=== PATIENT | male | born 1950 | race Caucasian/White ===

== ENCOUNTER → 2016-12-30 | Outpatient (CLI) | payer MEDICARE | LOC: M SMT 08:26 | PROVIDERS: ATTEND Urology | DX: R97.20 Elevated prostate specific antigen [PSA] (principal) ==

== ENCOUNTER → 2020-01-04 | Outpatient (REF) | payer MEDICARE, MEDICAID ==
[2020-01-04 15:27] LABS: BASO # 0.1 10^3/uL (0.0-0.2); BASO % 0.6 % (0.0-1.0); EOS # 0.3 10^3/uL (0.0-0.5); EOS % 2.6 % (0.0-3.0); HEMATOCRIT 51.4 % (42.0-52.0); HEMOGLOBIN 17.5 g/dl (13.5-17.5); LYMPH # 2.3 10^3/uL (1.5-5.0); LYMPH % 20.5 % (24.0-44.0); MEAN CORPUSCULAR HEMOGLOBIN 32.3 pg (27.0-33.0); MONO # 0.9 10^3/uL (0.0-0.8); MONO % 7.7 % (0.0-5.0); NEUTROPHILS # 7.6 10^3/uL (1.5-8.5); NEUTROPHILS % 68.1 % (36.0-66.0); PLATELET COUNT, AUTOMATED 214 10^3/uL (150-450); RED BLOOD COUNT 5.41 10^6/uL (4.30-6.10); WHITE BLOOD COUNT 11.1 10^3/uL (4.0-10.0)
== END ==
LOC: M LAB REF 09:00
PROVIDERS: ATTEND Internal Medicine Pulmonary Disease
DX: J84.114 Acute interstitial pneumonitis (principal)

== ENCOUNTER → 2020-01-10 | Outpatient (CLI) | payer MEDICARE, MEDICAID ==
[2020-01-10 13:06] LABS: HEMOGLOBIN A1c 9.6 %
[2020-01-10 13:41] LABS: ALBUMIN 4.6 GM/DL (3.2-5.2); ALT/SGPT 115 U/L (12-78); BILIRUBIN,TOTAL 2.1 MG/DL (0.2-1.0); BLOOD UREA NITROGEN 18 MG/DL (7-18); CALCIUM LEVEL 9.3 MG/DL (8.8-10.2); CARBON DIOXIDE LEVEL 25 MEQ/L (21-32); CHLORIDE LEVEL 100 MEQ/L (98-107); CHOLESTEROL LEVEL 151 MG/DL (<200); CHOLESTEROL RISK RATIO 4.314 (<5); CREATININE FOR GFR 1.14 MG/DL (0.70-1.30); GLOMERULAR FILTRATION RATE > 60.0 (>49); GLUCOSE, FASTING 441 MG/DL (70-100); HDL CHOLESTEROL 35 MG/DL (>40); LDL CHOLESTEROL 57 MG/DL (<100); NON-HDL-C 116 MG/DL; POTASSIUM SERUM 4.7 MEQ/L (3.5-5.1); SODIUM LEVEL 133 MEQ/L (136-145); THYROID STIMULATING HORMONE 0.574 uIU/ML (0.358-3.740); TOTAL PROTEIN 7.6 GM/DL (6.4-8.2); TRIGLYCERIDES LEVEL 297 MG/DL (<150)
== END ==
LOC: M PLALAB 10:28
PROVIDERS: ATTEND Nurse Practitioner Adult Health
DX: E11.9 Type 2 diabetes mellitus without complications (principal); E78.2 Mixed hyperlipidemia; I10 Essential (primary) hypertension; Z13.29 Encounter for screening for other suspected endocrine disorder
CPT/HCPCS: 36415; 80053; 80061; 83036; 84443; G0463

== ENCOUNTER → 2020-03-19 | Outpatient (REF) | payer MEDICARE, MEDICAID ==
[2020-03-19 19:01] LABS: ALT/SGPT 52 U/L (12-78); BLOOD UREA NITROGEN 11 MG/DL (7-18); CALCIUM LEVEL 9.5 MG/DL (8.8-10.2); CARBON DIOXIDE LEVEL 26 MEQ/L (21-32); CHLORIDE LEVEL 108 MEQ/L (98-107); CREATININE FOR GFR 0.88 MG/DL (0.70-1.30); GLOMERULAR FILTRATION RATE > 60.0 (>49); GLUCOSE, FASTING 104 MG/DL (70-100); POTASSIUM SERUM 4.1 MEQ/L (3.5-5.1); SODIUM LEVEL 139 MEQ/L (136-145)
[2020-03-19 20:46] LABS: MALB URINE SIEMENS 10.9 MG/L; MAU/CREAT RATIO 7.1 MCG/MG (0.0-30.0)
[2020-03-19 22:47] LABS: HEMOGLOBIN A1c 7.3 %
== END ==
LOC: M PLALAB 17:00 → M SFHCPLAZ 17:00
PROVIDERS: ATTEND Nurse Practitioner Adult Health
DX: M1A.9XX0 Chronic gout, unspecified, without tophus (tophi) (principal); E11.9 Type 2 diabetes mellitus without complications
CPT/HCPCS: 80053; 82043; 83036; G0463; G8482

== ENCOUNTER → 2020-07-30 | Outpatient (REF) | payer MEDICARE ==
[2020-07-30 15:08] LABS: ALBUMIN 4.3 GM/DL (3.2-5.2); ALT/SGPT 73 U/L (12-78); BILIRUBIN,TOTAL 1.3 MG/DL (0.2-1.0); BLOOD UREA NITROGEN 14 MG/DL (7-18); CALCIUM LEVEL 9.3 MG/DL (8.8-10.2); CARBON DIOXIDE LEVEL 31 MEQ/L (21-32); CHLORIDE LEVEL 107 MEQ/L (98-107); CHOLESTEROL LEVEL 131 MG/DL (<200); CHOLESTEROL RISK RATIO 3.638 (<5); CREATININE FOR GFR 0.87 MG/DL (0.70-1.30); GLOMERULAR FILTRATION RATE > 60.0 (>49); GLUCOSE, FASTING 98 MG/DL (70-100); HDL CHOLESTEROL 36 MG/DL (>40); LDL CHOLESTEROL 41 MG/DL (<100); NON-HDL-C 95 MG/DL; POTASSIUM SERUM 4.6 MEQ/L (3.5-5.1); SODIUM LEVEL 142 MEQ/L (136-145); TOTAL PROTEIN 7.2 GM/DL (6.4-8.2); TRIGLYCERIDES LEVEL 269 MG/DL (<150); URIC ACID 4.5 MG/DL (3.5-7.2)
[2020-07-30 15:37] LABS: HEMOGLOBIN A1c 6.2 %
[2020-07-30 18:15] LABS: MALB URINE SIEMENS 10.4 MG/L; MAU/CREAT RATIO 7.2 MCG/MG (0.0-30.0)
== END ==
LOC: M SFHCPLAZ 11:02
PROVIDERS: ATTEND Nurse Practitioner Adult Health
DX: E78.2 Mixed hyperlipidemia (principal); E11.9 Type 2 diabetes mellitus without complications; M1A.9XX0 Chronic gout, unspecified, without tophus (tophi)
CPT/HCPCS: 36415; 80053; 80061; 82043; 83036; 84550; G0463

== ENCOUNTER → 2021-01-30 | Outpatient (CLI) | payer MEDICARE ==
[2021-01-30 16:04] LABS: HEMOGLOBIN A1c 6.4 %
[2021-01-30 16:17] LABS: ALBUMIN 3.7 GM/DL (3.2-5.2); ALT/SGPT 105 U/L (12-78); BILIRUBIN,TOTAL 1.5 MG/DL (0.2-1.0); BLOOD UREA NITROGEN 11 MG/DL (7-18); CALCIUM LEVEL 9.3 MG/DL (8.8-10.2); CARBON DIOXIDE LEVEL 31 MEQ/L (21-32); CHLORIDE LEVEL 104 MEQ/L (98-107); CHOLESTEROL LEVEL 133 MG/DL (<200); CREATININE FOR GFR 0.69 MG/DL (0.70-1.30); GLOMERULAR FILTRATION RATE > 60.0 (>49); GLUCOSE, FASTING 94 MG/DL (70-100); HDL CHOLESTEROL 31 MG/DL (>40); LDL CHOLESTEROL 30 MG/DL (<100); NON-HDL-C 102 MG/DL; POTASSIUM SERUM 4.5 MEQ/L (3.5-5.1); SODIUM LEVEL 140 MEQ/L (136-145); TOTAL PROTEIN 6.6 GM/DL (6.4-8.2); TRIGLYCERIDES LEVEL 359 MG/DL (<150)
[2021-01-30 16:25] LABS: MALB URINE SIEMENS 13.8 MG/L; MAU/CREAT RATIO 8.6 MCG/MG (0.0-30.0)
== END ==
LOC: M PLALAB 11:20
PROVIDERS: ATTEND Nurse Practitioner Adult Health
DX: E11.9 Type 2 diabetes mellitus without complications (principal)

== ENCOUNTER → 2021-05-23 | Outpatient (CLI) | payer OTHER | LOC: M PLAIMG 09:42 | PROVIDERS: ATTEND Internal Medicine Pulmonary Disease | DX: J62.0 Pneumoconiosis due to talc dust (principal); R97.20 Elevated prostate specific antigen [PSA] ==

== ENCOUNTER → 2021-07-23 | Outpatient (CLI) | payer MEDICARE ==
[2021-07-23 13:43] LABS: ALT/SGPT 62 U/L (12-78); BILIRUBIN,TOTAL 1.6 MG/DL (0.2-1.0); BLOOD UREA NITROGEN 11 MG/DL (7-18); CALCIUM LEVEL 9.5 MG/DL (8.8-10.2); CARBON DIOXIDE LEVEL 29 MEQ/L (21-32); CHLORIDE LEVEL 108 MEQ/L (98-107); CHOLESTEROL LEVEL 112 MG/DL (<200); CHOLESTEROL RISK RATIO 3.612 (<5); CREATININE FOR GFR 0.87 MG/DL (0.70-1.30); GLOMERULAR FILTRATION RATE > 60.0 (>42); GLUCOSE, FASTING 74 MG/DL (70-100); HDL CHOLESTEROL 31 MG/DL (>40); LDL CHOLESTEROL 20 MG/DL (<100); NON-HDL-C 81 MG/DL; POTASSIUM SERUM 4.2 MEQ/L (3.5-5.1); SODIUM LEVEL 143 MEQ/L (136-145); TOTAL PROTEIN 6.9 GM/DL (6.4-8.2); TRIGLYCERIDES LEVEL 305 MG/DL (<150)
[2021-07-23 13:53] LABS: MALB URINE SIEMENS 31.2 MG/L
[2021-07-23 19:30] LABS: HEMOGLOBIN A1c 6.7 %
== END ==
LOC: M PLALAB 11:03
PROVIDERS: ATTEND Nurse Practitioner Adult Health
DX: E78.2 Mixed hyperlipidemia (principal); E11.9 Type 2 diabetes mellitus without complications

== ENCOUNTER → 2022-03-16 | Outpatient (REF) | payer OTHER, MEDICARE | LOC: M LAB REF 13:12 | PROVIDERS: ATTEND Nurse Practitioner Adult Health | DX: R05.9 Cough, unspecified (principal) ==

== ENCOUNTER → 2022-03-19 | Outpatient (CLI) | payer OTHER | LOC: M PLAIMG 10:50 | PROVIDERS: ATTEND Nurse Practitioner Adult Health | DX: J44.1 Chronic obstructive pulmonary disease with (acute) exacerbation (principal) ==

== ENCOUNTER → 2022-04-01 | Outpatient (CLI) | payer OTHER | LOC: M PLAIMG 11:56 | PROVIDERS: ATTEND Internal Medicine Pulmonary Disease | DX: J84.9 Interstitial pulmonary disease, unspecified (principal) ==

== ENCOUNTER → 2022-04-20 | Outpatient (CLI) | payer OTHER ==
[~2022-04-20] MED LIST: ALBU6.7H6 INH; ALLO300T2 PO; ASPI81TA26 PO; ATEN25TA PO; AZEL1SPR3 INH; B-10TAB2 PO; B-12100010 PO; BACL10TA2 PO; ENAL20TA11 PO; FINA5TAB2 PO; FLUTISP INH; GABA-283 PO; JANU100T PO; METF-838 PO; PRED10TA2 PO; ROPI0.5T3 PO; SIMV20TA22 PO; VITMTA PO
== END ==
LOC: M PLAIMG 08:40
PROVIDERS: ATTEND Internal Medicine Pulmonary Disease
DX: R91.8 Other nonspecific abnormal finding of lung field (principal)

== ENCOUNTER 2022-04-21 13:06 | Inpatient (IN) | payer OTHER ==
[~2022-04-21] VITALS: Ht 180.3 cm; Wt 91.2 kg
[2022-04-21] MEDS ORDERED: ISOVUE-370 76% 100ML VIAL As Ordered ONE (13:53)
[2022-04-21 13:55] LABS: BASO % 0.1 % (0.0-1.0); EOS % 0.2 % (0.0-3.0); HEMATOCRIT 53.3 % (42.0-52.0); HEMOGLOBIN 16.9 g/dl (13.5-17.5); LYMPH # 1.4 10^3/uL (1.5-5.0); LYMPH % 8.5 % (24.0-44.0); MEAN CORPUSCULAR HEMOGLOBIN 30.9 pg (27.0-33.0); MEAN CORPUSCULAR HGB CONC 31.7 g/dl (32.0-36.5); MEAN CORPUSCULAR VOLUME 97.4 fl (80.0-96.0); MONO % 6.3 % (2.0-8.0); NEUTROPHILS # 13.5 10^3/uL (1.5-8.5); NEUTROPHILS % 84.3 % (36.0-66.0); PLATELET COUNT, AUTOMATED 274 10^3/uL (150-450); RED BLOOD COUNT 5.47 10^6/uL (4.30-6.10)
[2022-04-21] MEDS ORDERED: PRED10TA2 PO (14:15)
[2022-04-21] MEDS ORDERED: ALLO300T2 PO (14:15)
[2022-04-21] MEDS ORDERED: ROPI0.5T3 PO (14:15)
[2022-04-21] MEDS ORDERED: FINA5TAB2 PO (14:15)
[2022-04-21] MEDS ORDERED: AZEL1SPR3 INH (14:15)
[2022-04-21] MEDS ORDERED: BACL10TA2 PO ×2 (14:15→20:51)
[2022-04-21] MEDS ORDERED: ATEN25TA PO (14:15)
[2022-04-21] MEDS ORDERED: FLUTISP INH (14:15)
[2022-04-21] MEDS ORDERED: SIMV20TA22 PO (14:15)
[2022-04-21] MEDS ORDERED: GABA-283 PO (14:15)
[2022-04-21] MEDS ORDERED: METF-838 PO (14:15)
[2022-04-21] MEDS ORDERED: JANU100T PO (14:15)
[2022-04-21] MEDS ORDERED: ENAL20TA11 PO (14:15)
[2022-04-21 14:38] LABS: BILIRUBIN,DIRECT 0.7 MG/DL (<0.4)
[2022-04-21 14:39] LABS: ALBUMIN 3.6 G/DL (3.2-5.2); BILIRUBIN,TOTAL 1.9 MG/DL (0.3-1.2); TOTAL PROTEIN 6.3 G/DL (5.7-8.2)
[2022-04-21 14:41] LABS: THYROID STIMULATING HORMONE 1.038 uIU/ML (0.55-4.78); THYROXINE (T4) 5.2 UG/DL (4.5-10.9)
[2022-04-21] MEDS ORDERED: LevoFLOXacin IV 750 MG in IV 1 EA IV ONE (15:20)
[2022-04-21] MEDS ORDERED: VANCOMYCIN HCL 1,000 MG, VIAL MATE ADAPTER 1 EACH in NS 250 ML IV SCH (15:50)
[2022-04-21] MEDS: LEVALBUTEROL 1.25MG 0.5ML CONCENTRATE NEB INH SCH ×2 (16:00→23:02)
[2022-04-21] MEDS: IPRATROPIUM 0.02% SOLN 0.5MG 2.5ML NEB INH SCH ×2 (16:00→23:01)
[2022-04-21] MEDS: methylPREDNISolone 125MG 2ML VIAL IV SCH (16:16)
[2022-04-21 16:23] LABS: CK-MB VALUE MASS 2.9 NG/ML (<3.6)
[2022-04-21 16:24] LABS: MB/CK RELATIVE INDEX 6.74 (< OR =4)
[2022-04-21 17:29] LABS: CK-MB VALUE MASS 2.4 NG/ML (<3.6); MB/CK RELATIVE INDEX 6.48 (< OR =4)
[2022-04-21] MEDS: PIPERACILLIN/TAZOBACTAM SOD 4.5 GM in D5W MINI-BAG PLUS 50 ML IV SCH (17:45)
[2022-04-21] MEDS ORDERED: VANCOMYCIN HCL 1,000 MG, VIAL MATE ADAPTER 1 EACH in NS 250 ML IV ONE ×2 (20:00→21:00)
[2022-04-21] MEDS ORDERED: DEXTROSE 50% 50 ML SYRINGE IV PRN (20:40)
[2022-04-21] MEDS ORDERED: GLUCOSE 4GM CHEW TABLET PO PRN (20:40)
[2022-04-21] MEDS ORDERED: GLUCAGON INJ 1MG VIAL SC PRN (20:40)
[2022-04-21] MEDS ORDERED: VITMTA PO (20:51)
[2022-04-21] MEDS ORDERED: ALBU6.7H6 INH (20:51)
[2022-04-21] MEDS ORDERED: ASPI81TA26 PO (20:51)
[2022-04-21] MEDS ORDERED: B-10TAB2 PO (20:51)
[2022-04-21] MEDS ORDERED: B-12100010 PO (20:51)
[2022-04-21] MEDS ORDERED: HOME MED LIST COMPLETE! XX SCH (20:55)
[2022-04-21 21:52] LABS: ABG BASE EXCESS 0.4 (-2.0-2.0); ABG HCO3 28.2 MEQ/L (22.0-26.0); ABG O2 SATURATION 93.1 % (95.0-99.0); ABG PARTIAL PRESSURE CO2 56.8 mmHg (35.0-45.0); ABG PARTIAL PRESSURE O2 69.7 mmHg (75.0-100.0); ABG STANDARD HCO3 24.7 MEQ/L (22.0-26.0); ABG TOTAL CO2 29.9 MEQ/L (23.0-31.0); ABG pH (ARTERIAL) 7.313 UNITS (7.350-7.450)
[2022-04-21 22:19] LABS: BLOOD UREA NITROGEN 32 MG/DL (9-23); CALCIUM LEVEL 9.3 MG/DL (8.3-10.6); CARBON DIOXIDE LEVEL 28 MMOL/L (20-31); CHLORIDE LEVEL 94 MMOL/L (98-107); CREATININE FOR GFR 1.02 MG/DL (0.70-1.30); GLOMERULAR FILTRATION RATE > 60.0 (>42); GLUCOSE, FASTING 90 MG/DL (74-106); POTASSIUM SERUM 5.4 MMOL/L (3.5-5.1); SODIUM LEVEL 132 MMOL/L (136-145)
[2022-04-22] MEDS ORDERED: ALBUTEROL SULFATE 2.5 MG/0.5 ML INH NEB SOLN NEB PRN (03:10)
[2022-04-22] MEDS ORDERED: ALBUTEROL 90 MCG/ACT 8GM HFA INHALER INH PRN (03:25)
[2022-04-22 04:02] LABS: BLOOD UREA NITROGEN 19 MG/DL (9-23); CALCIUM LEVEL 8.4 MG/DL (8.3-10.6); CARBON DIOXIDE LEVEL 27 MMOL/L (20-31); CHLORIDE LEVEL 97 MMOL/L (98-107); CREATININE FOR GFR 0.87 MG/DL (0.70-1.30); GLOMERULAR FILTRATION RATE > 60.0 (>42); GLUCOSE, FASTING 114 MG/DL (74-106); POTASSIUM SERUM 5.6 MMOL/L (3.5-5.1); SODIUM LEVEL 131 MMOL/L (136-145)
[2022-04-22 05:58] LABS: ABG BASE EXCESS -0.7 (-2.0-2.0); ABG HCO3 27.3 MEQ/L (22.0-26.0); ABG O2 SATURATION 93.4 % (95.0-99.0); ABG PARTIAL PRESSURE CO2 58.1 mmHg (35.0-45.0); ABG PARTIAL PRESSURE O2 72.6 mmHg (75.0-100.0); ABG STANDARD HCO3 23.8 MEQ/L (22.0-26.0); ABG TOTAL CO2 29.1 MEQ/L (23.0-31.0)
[2022-04-22] MEDS: INSULIN LISPRO (NovoLOG) PER UNIT SC SCH ×5 (06:00→20:09)
[2022-04-22] MEDS: HEPARIN SOD (PORCINE) 5000UNITS/ML 1ML VIAL/SYRINGE SC SCH ×3 (06:24→21:54)
[2022-04-22] MEDS: PIPERACILLIN/TAZOBACTAM SOD 4.5 GM in D5W MINI-BAG PLUS 50 ML IV SCH ×6 (06:25→23:54)
[2022-04-22 07:34] LABS: APPEARANCE, URINE MANUAL CLEAR (CLEAR); COLOR, URINE MANUAL YELLOW (YELLOW); SPECIFIC GRAVITY,URINE MANUAL 1.025 (1.002-1.035)
[2022-04-22 07:35] LABS: BILIRUBIN, URINE MANUAL NEGATIVE (NEGATIVE); BLOOD URINE MANUAL NEGATIVE (NEGATIVE); GLUCOSE, URINE (UA) MANUAL NEGATIVE (NEGATIVE); KETONE, URINE MANUAL 1+ mg/dL (NEGATIVE); LEUKOCYTE ESTERASE, URINE MAN NEGATIVE (NEGATIVE); NITRITE, URINE MANUAL NEGATIVE (NEGATIVE); PROTEIN, URINE MANUAL NEGATIVE (NEGATIVE); UROBILINOGEN, URINE MANUAL NORMAL (NORMAL)
[2022-04-22] MEDS ORDERED: IPRATROPIUM 0.5MG/ALBUTEROL 2.5MG INH SOL UD 3ML (DUONEB) NEB SCH (08:00)
[2022-04-22] MEDS ORDERED: FUROSEMIDE 20MG/2ML VIAL (J1940) IV ONE ×2 (08:10→14:00)
[2022-04-22] MEDS: CYANOCOBALAMIN 500 MCG TAB PO SCH (08:43)
[2022-04-22] MEDS: FINASTERIDE 5MG TAB PO SCH (08:43)
[2022-04-22] MEDS: methylPREDNISolone 125MG 2ML VIAL IV SCH ×3 (08:43→17:12)
[2022-04-22] MEDS: BACLOFEN 10 MG TAB PO SCH ×2 (08:44→20:03)
[2022-04-22] MEDS: MULTIVITAMINS/MINERALS THERAP 1 TAB PO SCH (08:44)
[2022-04-22] MEDS: atenoloL 25 MG TAB PO SCH (08:44)
[2022-04-22] MEDS ORDERED: methylPREDNISolone 40MG 1ML VIAL IV SCH (09:00)
[2022-04-22] MEDS: IPRATROPIUM 0.02% SOLN 0.5MG 2.5ML NEB INH SCH ×2 (09:01→16:39)
[2022-04-22] MEDS: LEVALBUTEROL 1.25MG 0.5ML CONCENTRATE NEB INH SCH ×2 (09:01→16:39)
[2022-04-22 09:29] LABS: HEMATOCRIT 52.4 % (42.0-52.0); HEMOGLOBIN 16.7 g/dl (13.5-17.5); MEAN CORPUSCULAR HEMOGLOBIN 31.3 pg (27.0-33.0); MEAN CORPUSCULAR HGB CONC 31.9 g/dl (32.0-36.5); MEAN CORPUSCULAR VOLUME 98.1 fl (80.0-96.0); PLATELET COUNT, AUTOMATED 194 10^3/uL (150-450); RED BLOOD COUNT 5.34 10^6/uL (4.30-6.10); WHITE BLOOD COUNT 10.2 10^3/uL (4.0-10.0)
[2022-04-22] MEDS ORDERED: DEXTROSE 50% 50 ML SYRINGE IV STA (11:06)
[2022-04-22] MEDS ORDERED: HumuLIN R (REGULAR) INSULIN (NovoLIN R) **100U/ML** PER UNIT IV STA (11:06)
[2022-04-22] MEDS ORDERED: ALBUTEROL SULFATE 2.5 MG/0.5 ML INH NEB SOLN NEB ONE (11:45)
[2022-04-22 12:25] LABS: BLOOD UREA NITROGEN 27 MG/DL (9-23); CALCIUM LEVEL 8.6 MG/DL (8.3-10.6); CARBON DIOXIDE LEVEL 27 MMOL/L (20-31); CHLORIDE LEVEL 96 MMOL/L (98-107); CREATININE FOR GFR 0.92 MG/DL (0.70-1.30); GLOMERULAR FILTRATION RATE > 60.0 (>42); GLUCOSE, FASTING 124 MG/DL (74-106); SODIUM LEVEL 133 MMOL/L (136-145)
[2022-04-22] MEDS: PANTOPRAZOLE 40MG TAB (PROTONIX) PO SCH (12:50)
[2022-04-22 13:08] LABS: ABG BASE EXCESS 0.1 (-2.0-2.0); ABG HCO3 26.5 MEQ/L (22.0-26.0); ABG O2 SATURATION 94.8 % (95.0-99.0); ABG PARTIAL PRESSURE CO2 49.3 mmHg (35.0-45.0); ABG PARTIAL PRESSURE O2 71.7 mmHg (75.0-100.0); ABG STANDARD HCO3 24.5 MEQ/L (22.0-26.0); ABG TOTAL CO2 28.1 MEQ/L (23.0-31.0); ABG pH (ARTERIAL) 7.349 UNITS (7.350-7.450)
[2022-04-22 13:51] LABS: POTASSIUM SERUM 5.7 MMOL/L (3.5-5.1)
[2022-04-22] MEDS ORDERED: CALCIUM GLUCONATE 1,000 MG in D5W MINI-BAG PLUS 100 ML IV ONE (14:00)
[2022-04-22 16:28] VITALS: BP 117/68
[2022-04-22] MEDS: AZITHROMYCIN 250MG TABLET PO SCH (17:12)
[2022-04-22 19:27] LABS: BLOOD UREA NITROGEN 26 MG/DL (9-23); CALCIUM LEVEL 9.2 MG/DL (8.3-10.6); CARBON DIOXIDE LEVEL 32 MMOL/L (20-31); CHLORIDE LEVEL 92 MMOL/L (98-107); CREATININE FOR GFR 1.05 MG/DL (0.70-1.30); GLOMERULAR FILTRATION RATE > 60.0 (>42); GLUCOSE, FASTING 133 MG/DL (74-106); POTASSIUM SERUM 5.3 MMOL/L (3.5-5.1); SODIUM LEVEL 134 MMOL/L (136-145)
[2022-04-22] MEDS: allopurinoL 300 MG TAB PO SCH (20:03)
[2022-04-22] MEDS: rOPINIRole 0.25 MG TAB(REQUIP) PO SCH (20:04)
[2022-04-22] MEDS: GABAPENTIN 400MG CAP PO SCH (20:04)
[2022-04-22 20:10] VITALS: BP 119/63
[2022-04-22 21:55] VITALS: BP 91/57
[2022-04-23] VITALS (21 sets, daily range): BP systolic 95–134; BP diastolic 59–75
[2022-04-23] MEDS: LEVALBUTEROL 1.25MG 0.5ML CONCENTRATE NEB INH SCH ×4 (00:34→23:16)
[2022-04-23] MEDS: IPRATROPIUM 0.02% SOLN 0.5MG 2.5ML NEB INH SCH ×4 (00:34→23:16)
[2022-04-23 00:59] LABS: BLOOD UREA NITROGEN 15 MG/DL (9-23); CALCIUM LEVEL 8.6 MG/DL (8.3-10.6); CARBON DIOXIDE LEVEL 31 MMOL/L (20-31); CHLORIDE LEVEL 95 MMOL/L (98-107); CREATININE FOR GFR 1.07 MG/DL (0.70-1.30); GLOMERULAR FILTRATION RATE > 60.0 (>42); GLUCOSE, FASTING 150 MG/DL (74-106); POTASSIUM SERUM 5.5 MMOL/L (3.5-5.1); SODIUM LEVEL 132 MMOL/L (136-145)
[2022-04-23] MEDS ORDERED: CALCIUM GLUCONATE 1,000 MG in D5W MINI-BAG PLUS 100 ML IV ONE (01:55)
[2022-04-23 04:35] LABS: HEMATOCRIT 46.5 % (42.0-52.0); HEMOGLOBIN 14.8 g/dl (13.5-17.5); MEAN CORPUSCULAR HEMOGLOBIN 30.8 pg (27.0-33.0); MEAN CORPUSCULAR HGB CONC 31.8 g/dl (32.0-36.5); MEAN CORPUSCULAR VOLUME 96.9 fl (80.0-96.0); PLATELET COUNT, AUTOMATED 154 10^3/uL (150-450); WHITE BLOOD COUNT 11.2 10^3/uL (4.0-10.0)
[2022-04-23 05:33] LABS: BLOOD UREA NITROGEN 27 MG/DL (9-23); CALCIUM LEVEL 8.7 MG/DL (8.3-10.6); CARBON DIOXIDE LEVEL 33 MMOL/L (20-31); CHLORIDE LEVEL 95 MMOL/L (98-107); CREATININE FOR GFR 1.05 MG/DL (0.70-1.30); GLOMERULAR FILTRATION RATE > 60.0 (>42); GLUCOSE, FASTING 166 MG/DL (74-106); POTASSIUM SERUM 5.5 MMOL/L (3.5-5.1); SODIUM LEVEL 132 MMOL/L (136-145)
[2022-04-23] MEDS: PIPERACILLIN/TAZOBACTAM SOD 4.5 GM in D5W MINI-BAG PLUS 50 ML IV SCH ×4 (05:35→23:57)
[2022-04-23] MEDS: HEPARIN SOD (PORCINE) 5000UNITS/ML 1ML VIAL/SYRINGE SC SCH (05:40)
[2022-04-23 06:08] LABS: ABG BASE EXCESS 5.2 (-2.0-2.0); ABG HCO3 32.7 MEQ/L (22.0-26.0); ABG O2 SATURATION 98.7 % (95.0-99.0); ABG PARTIAL PRESSURE CO2 58.8 mmHg (35.0-45.0); ABG PARTIAL PRESSURE O2 127.5 mmHg (75.0-100.0); ABG STANDARD HCO3 29.2 MEQ/L (22.0-26.0); ABG TOTAL CO2 34.5 MEQ/L (23.0-31.0); ABG pH (ARTERIAL) 7.363 UNITS (7.350-7.450)
[2022-04-23] MEDS ORDERED: SOD POLYSTYRENE SULFONATE SUSP 15GM 60ML UD PO ONE (07:00)
[2022-04-23] MEDS: INSULIN LISPRO (NovoLOG) PER UNIT SC SCH ×4 (07:30→20:31)
[2022-04-23] MEDS: atenoloL 25 MG TAB PO SCH (08:05)
[2022-04-23] MEDS: PANTOPRAZOLE 40MG TAB (PROTONIX) PO SCH (08:40)
[2022-04-23] MEDS: methylPREDNISolone 125MG 2ML VIAL IV SCH ×3 (08:40→17:00)
[2022-04-23] MEDS: AZITHROMYCIN 250MG TABLET PO SCH (08:40)
[2022-04-23] MEDS ORDERED: LIDOCAINE 1% MDV 20ML VIAL As Ordered ONE (14:52)
[2022-04-23] MEDS ORDERED: LIDOCAINE 4% TOPICAL SOLN 50 ML BTL As Ordered ONE (14:53)
[2022-04-23] MEDS ORDERED: THROMBIN 20,000 UNITS KIT As Ordered ONE (14:53)
[2022-04-23] MEDS ORDERED: EPINEPHrine 1MG/ML INJ 30ML MD-VIAL As Ordered ONE (14:53)
[2022-04-23] MEDS ORDERED: CETACAINE SPRAY 5GM As Ordered ONE (14:55)
[2022-04-23] MEDS ORDERED: propofoL 200 MG/20 ML VIAL As Ordered ONE (14:56)
[2022-04-23] MEDS ORDERED: ROCURONIUM BROMIDE 50 MG/5 ML VIAL As Ordered ONE (14:58)
[2022-04-23] MEDS ORDERED: ONDANSETRON 4MG 2ML VIAL As Ordered ONE (14:58)
[2022-04-23] MEDS ORDERED: fentaNYL 100 MCG/2 ML INJECTION As Ordered ONE (14:58)
[2022-04-23] MEDS ORDERED: EPINEPHrine 1MG/10ML SYRINGE 1.5IN As Ordered ONE (15:41)
[2022-04-23] MEDS ORDERED: SUGAMMADEX SODIUM 500 MG/5 ML VIAL (BRIDION) As Ordered ONE (15:45)
[2022-04-23] MEDS: MULTIVITAMINS/MINERALS THERAP 1 TAB PO SCH (17:00)
[2022-04-23] MEDS: BACLOFEN 10 MG TAB PO SCH ×2 (17:00→20:05)
[2022-04-23] MEDS: CYANOCOBALAMIN 500 MCG TAB PO SCH (17:00)
[2022-04-23] MEDS: FINASTERIDE 5MG TAB PO SCH (17:00)
[2022-04-23 18:07] LABS: MYCOPLASMA PNEUMONIAE IgG <100 U/mL (0-99); MYCOPLASMA PNEUMONIAE IgM <770 U/mL (0-769)
[2022-04-23] MEDS: allopurinoL 300 MG TAB PO SCH (20:05)
[2022-04-23] MEDS: GABAPENTIN 400MG CAP PO SCH (20:05)
[2022-04-23] MEDS: rOPINIRole 0.25 MG TAB(REQUIP) PO SCH (20:05)
[2022-04-24] VITALS (8 sets, daily range): BP systolic 97–133; BP diastolic 50–74
[2022-04-24] MEDS: methylPREDNISolone 125MG 2ML VIAL IV SCH ×2 (00:01→08:12)
[2022-04-24 04:43] LABS: HEMATOCRIT 47.2 % (42.0-52.0); HEMOGLOBIN 14.6 g/dl (13.5-17.5); MEAN CORPUSCULAR HEMOGLOBIN 30.9 pg (27.0-33.0); MEAN CORPUSCULAR HGB CONC 30.9 g/dl (32.0-36.5); MEAN CORPUSCULAR VOLUME 99.8 fl (80.0-96.0); PLATELET COUNT, AUTOMATED 150 10^3/uL (150-450); RED BLOOD COUNT 4.73 10^6/uL (4.30-6.10); WHITE BLOOD COUNT 9.6 10^3/uL (4.0-10.0)
[2022-04-24] MEDS: PIPERACILLIN/TAZOBACTAM SOD 4.5 GM in D5W MINI-BAG PLUS 50 ML IV SCH ×2 (05:09→11:40)
[2022-04-24 05:14] LABS: BLOOD UREA NITROGEN 28 MG/DL (9-23); CALCIUM LEVEL 8.6 MG/DL (8.3-10.6); CARBON DIOXIDE LEVEL 33 MMOL/L (20-31); CHLORIDE LEVEL 94 MMOL/L (98-107); GLOMERULAR FILTRATION RATE > 60.0 (>42); GLUCOSE, FASTING 170 MG/DL (74-106); POTASSIUM SERUM 5.2 MMOL/L (3.5-5.1); SODIUM LEVEL 136 MMOL/L (136-145)
[2022-04-24] MEDS: HEPARIN SOD (PORCINE) 5000UNITS/ML 1ML VIAL/SYRINGE SC SCH ×3 (06:05→20:54)
[2022-04-24] MEDS: LEVALBUTEROL 1.25MG 0.5ML CONCENTRATE NEB INH SCH ×3 (07:21→23:14)
[2022-04-24] MEDS: IPRATROPIUM 0.02% SOLN 0.5MG 2.5ML NEB INH SCH ×3 (07:21→23:14)
[2022-04-24] MEDS: INSULIN LISPRO (NovoLOG) PER UNIT SC SCH ×4 (07:33→20:47)
[2022-04-24] MEDS: CYANOCOBALAMIN 500 MCG TAB PO SCH (08:12)
[2022-04-24] MEDS: BACLOFEN 10 MG TAB PO SCH ×2 (08:12→20:54)
[2022-04-24] MEDS: AZITHROMYCIN 250MG TABLET PO SCH (08:12)
[2022-04-24] MEDS: FINASTERIDE 5MG TAB PO SCH (08:12)
[2022-04-24] MEDS: PANTOPRAZOLE 40MG TAB (PROTONIX) PO SCH (08:12)
[2022-04-24] MEDS: atenoloL 25 MG TAB PO SCH (08:13)
[2022-04-24] MEDS: MULTIVITAMINS/MINERALS THERAP 1 TAB PO SCH (08:13)
[2022-04-24] MEDS ORDERED: methylPREDNISolone 40MG 1ML VIAL IV SCH (11:35)
[2022-04-24] MEDS: predniSONE 20 MG TAB PO SCH (12:42)
[2022-04-24] MEDS: FUROSEMIDE 20 MG TAB PO SCH (14:19)
[2022-04-24 15:32] LABS: BLOOD UREA NITROGEN 17 MG/DL (9-23); CALCIUM LEVEL 8.6 MG/DL (8.3-10.6); CARBON DIOXIDE LEVEL 36 MMOL/L (20-31); CHLORIDE LEVEL 92 MMOL/L (98-107); CREATININE FOR GFR 1.14 MG/DL (0.70-1.30); GLOMERULAR FILTRATION RATE > 60.0 (>42); GLUCOSE, FASTING 134 MG/DL (74-106); SODIUM LEVEL 134 MMOL/L (136-145)
[2022-04-24 18:07] LABS: HISTOPLASMA GAL'MANNAN AG UR <0.5 (<0.5 ng/mL); LEGIONELLA ANTIGEN URINE Negative (Negative)
[2022-04-24] MEDS: GABAPENTIN 400MG CAP PO SCH (20:53)
[2022-04-24] MEDS: rOPINIRole 0.25 MG TAB(REQUIP) PO SCH (20:54)
[2022-04-24] MEDS: AUGMENTIN 875 MG TAB PO SCH (20:54)
[2022-04-24] MEDS: allopurinoL 300 MG TAB PO SCH (20:54)
[2022-04-25] MEDS: HEPARIN SOD (PORCINE) 5000UNITS/ML 1ML VIAL/SYRINGE SC SCH ×3 (05:26→20:24)
[2022-04-25 05:27] VITALS: BP 114/67
[2022-04-25 06:44] LABS: HEMOGLOBIN 14.6 g/dl (13.5-17.5); LYMPH # 0.7 10^3/uL (1.5-5.0); LYMPH % 6.7 % (24.0-44.0); MEAN CORPUSCULAR HEMOGLOBIN 30.7 pg (27.0-33.0); MEAN CORPUSCULAR HGB CONC 31.1 g/dl (32.0-36.5); MEAN CORPUSCULAR VOLUME 98.9 fl (80.0-96.0); MONO # 0.9 10^3/uL (0.0-0.8); NEUTROPHILS % 84.7 % (36.0-66.0); PLATELET COUNT, AUTOMATED 132 10^3/uL (150-450); RED BLOOD COUNT 4.75 10^6/uL (4.30-6.10); WHITE BLOOD COUNT 10.6 10^3/uL (4.0-10.0)
[2022-04-25 07:13] LABS: MAGNESIUM LEVEL 2.3 MG/DL (1.8-2.4)
[2022-04-25] MEDS: LEVALBUTEROL 1.25MG 0.5ML CONCENTRATE NEB INH SCH ×3 (07:29→23:15)
[2022-04-25] MEDS: IPRATROPIUM 0.02% SOLN 0.5MG 2.5ML NEB INH SCH ×3 (07:29→23:15)
[2022-04-25] MEDS: INSULIN LISPRO (NovoLOG) PER UNIT SC SCH ×4 (07:30→20:08)
[2022-04-25 07:32] LABS: ALBUMIN 3.6 G/DL (3.2-5.2); ALKALINE PHOSPHATASE 39 U/L (46-116); ALT/SGPT 56 U/L (7.0-40); AST/SGOT 47 U/L (<34); BLOOD UREA NITROGEN 26 MG/DL (9-23); CALCIUM LEVEL 8.8 MG/DL (8.3-10.6); CARBON DIOXIDE LEVEL 36 MMOL/L (20-31); CHLORIDE LEVEL 93 MMOL/L (98-107); CREATININE FOR GFR 0.95 MG/DL (0.70-1.30); GLOMERULAR FILTRATION RATE > 60.0 (>42); GLUCOSE, FASTING 84 MG/DL (74-106); POTASSIUM SERUM 4.7 MMOL/L (3.5-5.1); SODIUM LEVEL 138 MMOL/L (136-145); TOTAL PROTEIN 5.7 G/DL (5.7-8.2)
[2022-04-25] MEDS: PANTOPRAZOLE 40MG TAB (PROTONIX) PO SCH (08:26)
[2022-04-25] MEDS: FUROSEMIDE 20 MG TAB PO SCH (08:26)
[2022-04-25] MEDS: predniSONE 20 MG TAB PO SCH (08:26)
[2022-04-25] MEDS: FINASTERIDE 5MG TAB PO SCH (08:26)
[2022-04-25] MEDS: CYANOCOBALAMIN 500 MCG TAB PO SCH (08:26)
[2022-04-25] MEDS: BACLOFEN 10 MG TAB PO SCH ×2 (08:27→20:24)
[2022-04-25] MEDS: AUGMENTIN 875 MG TAB PO SCH ×2 (08:27→20:24)
[2022-04-25] MEDS: MULTIVITAMINS/MINERALS THERAP 1 TAB PO SCH (08:27)
[2022-04-25] MEDS ORDERED: FUROSEMIDE 20MG/2ML VIAL (J1940) IV ONE (10:00)
[2022-04-25 12:46] VITALS: O2SAT 94
[2022-04-25 12:47] VITALS: O2SAT 90
[2022-04-25 12:49] VITALS: O2SAT 86
[2022-04-25] MEDS ORDERED: PANT40TA29 PO (13:26)
[2022-04-25] MEDS ORDERED: PRED10TA2 PO (13:26)
[2022-04-25] MEDS ORDERED: AMOX875T2 PO (13:26)
[2022-04-25] MEDS ORDERED: FURO20TA2 PO (13:26)
[2022-04-25 16:00] VITALS: BP 118/75
[2022-04-25 20:00] VITALS: BP 130/79
[2022-04-25] MEDS: rOPINIRole 0.25 MG TAB(REQUIP) PO SCH (20:24)
[2022-04-25] MEDS: GABAPENTIN 400MG CAP PO SCH (20:24)
[2022-04-25] MEDS: allopurinoL 300 MG TAB PO SCH (20:24)
[2022-04-26] MEDS: HEPARIN SOD (PORCINE) 5000UNITS/ML 1ML VIAL/SYRINGE SC SCH ×3 (05:17→20:11)
[2022-04-26 06:00] VITALS: BP 114/72
[2022-04-26 06:26] LABS: EOS # 0.1 10^3/uL (0.0-0.5); EOS % 0.7 % (0.0-3.0); HEMATOCRIT 47.5 % (42.0-52.0); HEMOGLOBIN 14.9 g/dl (13.5-17.5); LYMPH % 12.2 % (24.0-44.0); MEAN CORPUSCULAR HGB CONC 31.4 g/dl (32.0-36.5); MEAN CORPUSCULAR VOLUME 98.8 fl (80.0-96.0); MONO # 0.6 10^3/uL (0.0-0.8); MONO % 7.5 % (2.0-8.0); NEUTROPHILS # 6.8 10^3/uL (1.5-8.5); NEUTROPHILS % 79.2 % (36.0-66.0); PLATELET COUNT, AUTOMATED 101 10^3/uL (150-450); RED BLOOD COUNT 4.81 10^6/uL (4.30-6.10); WHITE BLOOD COUNT 8.5 10^3/uL (4.0-10.0)
[2022-04-26 06:48] LABS: ALBUMIN 3.2 G/DL (3.2-5.2); ALKALINE PHOSPHATASE 42 U/L (46-116); ALT/SGPT 79 U/L (7.0-40); AST/SGOT 65 U/L (<34); BILIRUBIN,TOTAL 2.3 MG/DL (0.3-1.2); BLOOD UREA NITROGEN 17 MG/DL (9-23); CALCIUM LEVEL 8.4 MG/DL (8.3-10.6); CARBON DIOXIDE LEVEL 40 MMOL/L (20-31); CHLORIDE LEVEL 93 MMOL/L (98-107); CREATININE FOR GFR 0.79 MG/DL (0.70-1.30); GLOMERULAR FILTRATION RATE > 60.0 (>42); GLUCOSE, FASTING 88 MG/DL (74-106); POTASSIUM SERUM 3.8 MMOL/L (3.5-5.1); SODIUM LEVEL 138 MMOL/L (136-145); TOTAL PROTEIN 5.4 G/DL (5.7-8.2)
[2022-04-26] MEDS: INSULIN LISPRO (NovoLOG) PER UNIT SC SCH ×4 (07:30→20:11)
[2022-04-26] MEDS: IPRATROPIUM 0.02% SOLN 0.5MG 2.5ML NEB INH SCH ×2 (07:53→15:18)
[2022-04-26] MEDS: LEVALBUTEROL 1.25MG 0.5ML CONCENTRATE NEB INH SCH ×2 (07:54→15:18)
[2022-04-26] MEDS: predniSONE 20 MG TAB PO SCH (09:38)
[2022-04-26] MEDS: BACLOFEN 10 MG TAB PO SCH ×2 (09:38→20:10)
[2022-04-26] MEDS: PANTOPRAZOLE 40MG TAB (PROTONIX) PO SCH (09:38)
[2022-04-26] MEDS: AUGMENTIN 875 MG TAB PO SCH ×2 (09:38→20:10)
[2022-04-26] MEDS: FINASTERIDE 5MG TAB PO SCH (09:38)
[2022-04-26] MEDS: MULTIVITAMINS/MINERALS THERAP 1 TAB PO SCH (09:38)
[2022-04-26] MEDS: FUROSEMIDE 20 MG TAB PO SCH (09:38)
[2022-04-26] MEDS: CYANOCOBALAMIN 500 MCG TAB PO SCH (09:38)
[2022-04-26 15:00] VITALS: BP 127/78
[2022-04-26] MEDS: GABAPENTIN 400MG CAP PO SCH (20:10)
[2022-04-26] MEDS: rOPINIRole 0.25 MG TAB(REQUIP) PO SCH (20:10)
[2022-04-26] MEDS: allopurinoL 300 MG TAB PO SCH (20:10)
[2022-04-26 20:40] VITALS: BP 135/76
[2022-04-27] MEDS: LEVALBUTEROL 1.25MG 0.5ML CONCENTRATE NEB INH SCH ×4 (00:29→23:26)
[2022-04-27] MEDS: IPRATROPIUM 0.02% SOLN 0.5MG 2.5ML NEB INH SCH ×4 (00:29→23:26)
[2022-04-27] MEDS: HEPARIN SOD (PORCINE) 5000UNITS/ML 1ML VIAL/SYRINGE SC SCH ×3 (05:38→21:15)
[2022-04-27 05:52] VITALS: BP 127/71
[2022-04-27 06:04] LABS: BASO % 0.1 % (0.0-1.0); EOS # 0.1 10^3/uL (0.0-0.5); EOS % 1.2 % (0.0-3.0); HEMATOCRIT 47.7 % (42.0-52.0); HEMOGLOBIN 14.8 g/dl (13.5-17.5); LYMPH # 0.9 10^3/uL (1.5-5.0); LYMPH % 10.4 % (24.0-44.0); MEAN CORPUSCULAR VOLUME 99.8 fl (80.0-96.0); MONO # 0.6 10^3/uL (0.0-0.8); MONO % 7.3 % (2.0-8.0); NEUTROPHILS # 6.9 10^3/uL (1.5-8.5); NEUTROPHILS % 80.4 % (36.0-66.0); RED BLOOD COUNT 4.78 10^6/uL (4.30-6.10); WHITE BLOOD COUNT 8.6 10^3/uL (4.0-10.0)
[2022-04-27 06:25] LABS: MAGNESIUM LEVEL 1.9 MG/DL (1.8-2.4)
[2022-04-27 06:28] LABS: PLATELET COUNT, AUTOMATED 99 10^3/uL (150-450)
[2022-04-27 06:39] LABS: ALKALINE PHOSPHATASE 45 U/L (46-116); ALT/SGPT 85 U/L (7.0-40); AST/SGOT 55 U/L (<34); BILIRUBIN,TOTAL 2.4 MG/DL (0.3-1.2); BLOOD UREA NITROGEN 13 MG/DL (9-23); CALCIUM LEVEL 8.5 MG/DL (8.3-10.6); CARBON DIOXIDE LEVEL > 40.0 MMOL/L (20-31); CHLORIDE LEVEL 92 MMOL/L (98-107); CREATININE FOR GFR 0.76 MG/DL (0.70-1.30); GLOMERULAR FILTRATION RATE > 60.0 (>42); GLUCOSE, FASTING 97 MG/DL (74-106); POTASSIUM SERUM 3.9 MMOL/L (3.5-5.1); SODIUM LEVEL 139 MMOL/L (136-145); TOTAL PROTEIN 5.2 G/DL (5.7-8.2)
[2022-04-27] MEDS: INSULIN LISPRO (NovoLOG) PER UNIT SC SCH ×4 (07:30→21:00)
[2022-04-27] MEDS ORDERED: FUROSEMIDE 20MG/2ML VIAL (J1940) IV ONE (08:15)
[2022-04-27 08:42] LABS: HEPATITIS B SURFACE ANTIGEN NEGATIVE (NEGATIVE)
[2022-04-27 09:03] LABS: HEPATITIS C VIRUS ABY INDEX 0.1 INDEX (<0.8)
[2022-04-27 09:04] LABS: HEPATITIS B CORE ANTIBODY IGM NEGATIVE (NEGATIVE)
[2022-04-27] MEDS: AUGMENTIN 875 MG TAB PO SCH ×2 (09:07→21:14)
[2022-04-27] MEDS: CYANOCOBALAMIN 500 MCG TAB PO SCH (09:07)
[2022-04-27] MEDS: PANTOPRAZOLE 40MG TAB (PROTONIX) PO SCH (09:07)
[2022-04-27] MEDS: BACLOFEN 10 MG TAB PO SCH ×2 (09:07→21:15)
[2022-04-27] MEDS: FINASTERIDE 5MG TAB PO SCH (09:07)
[2022-04-27] MEDS: MULTIVITAMINS/MINERALS THERAP 1 TAB PO SCH (09:07)
[2022-04-27] MEDS: predniSONE 20 MG TAB PO SCH (09:07)
[2022-04-27 14:00] VITALS: BP 127/76
[2022-04-27] MEDS: allopurinoL 300 MG TAB PO SCH (21:14)
[2022-04-27] MEDS: GABAPENTIN 400MG CAP PO SCH (21:14)
[2022-04-27] MEDS: rOPINIRole 0.25 MG TAB(REQUIP) PO SCH (21:15)
[2022-04-27 21:30] VITALS: BP 129/79
[2022-04-27] MEDS ORDERED: ACETAMINOPHEN TAB 650MG DOSE (2X325MG) PO PRN (21:50)
[2022-04-27 22:00] VITALS: O2SAT 96
[2022-04-27 23:28] VITALS: O2SAT 95
[2022-04-28] MEDS: HEPARIN SOD (PORCINE) 5000UNITS/ML 1ML VIAL/SYRINGE SC SCH ×2 (05:17→14:00)
[2022-04-28 06:00] VITALS: BP 103/79
[2022-04-28 06:44] LABS: EOS # 0.1 10^3/uL (0.0-0.5); EOS % 1.6 % (0.0-3.0); HEMATOCRIT 50.1 % (42.0-52.0); HEMOGLOBIN 15.1 g/dl (13.5-17.5); LYMPH % 11.5 % (24.0-44.0); MEAN CORPUSCULAR HEMOGLOBIN 30.2 pg (27.0-33.0); MEAN CORPUSCULAR HGB CONC 30.1 g/dl (32.0-36.5); MEAN CORPUSCULAR VOLUME 100.2 fl (80.0-96.0); MONO # 0.7 10^3/uL (0.0-0.8); MONO % 8.3 % (2.0-8.0); NEUTROPHILS # 6.9 10^3/uL (1.5-8.5); NEUTROPHILS % 78.1 % (36.0-66.0); WHITE BLOOD COUNT 8.8 10^3/uL (4.0-10.0)
[2022-04-28 06:48] LABS: PLATELET COUNT, AUTOMATED 97 10^3/uL (150-450)
[2022-04-28 07:13] LABS: ALBUMIN 3.2 G/DL (3.2-5.2); ALKALINE PHOSPHATASE 60 U/L (46-116); ALT/SGPT 127 U/L (7.0-40); AST/SGOT 93 U/L (<34); BILIRUBIN,TOTAL 2.2 MG/DL (0.3-1.2); BLOOD UREA NITROGEN 20 MG/DL (9-23); CALCIUM LEVEL 8.6 MG/DL (8.3-10.6); CARBON DIOXIDE LEVEL > 40.0 MMOL/L (20-31); CHLORIDE LEVEL 91 MMOL/L (98-107); CREATININE FOR GFR 0.75 MG/DL (0.70-1.30); GLOMERULAR FILTRATION RATE > 60.0 (>42); GLUCOSE, FASTING 126 MG/DL (74-106); POTASSIUM SERUM 3.8 MMOL/L (3.5-5.1); SODIUM LEVEL 138 MMOL/L (136-145); TOTAL PROTEIN 5.6 G/DL (5.7-8.2)
[2022-04-28] MEDS: INSULIN LISPRO (NovoLOG) PER UNIT SC SCH ×2 (07:30→11:52)
[2022-04-28] MEDS: IPRATROPIUM 0.02% SOLN 0.5MG 2.5ML NEB INH SCH ×2 (08:18→16:00)
[2022-04-28] MEDS: LEVALBUTEROL 1.25MG 0.5ML CONCENTRATE NEB INH SCH ×2 (08:18→16:00)
[2022-04-28] MEDS: FINASTERIDE 5MG TAB PO SCH (08:56)
[2022-04-28] MEDS: AUGMENTIN 875 MG TAB PO SCH (08:56)
[2022-04-28] MEDS: MULTIVITAMINS/MINERALS THERAP 1 TAB PO SCH (08:56)
[2022-04-28] MEDS: BACLOFEN 10 MG TAB PO SCH (08:56)
[2022-04-28] MEDS: CYANOCOBALAMIN 500 MCG TAB PO SCH (08:56)
[2022-04-28] MEDS: predniSONE 20 MG TAB PO SCH (08:56)
[2022-04-28] MEDS: PANTOPRAZOLE 40MG TAB (PROTONIX) PO SCH (08:56)
[2022-04-28] MEDS ORDERED: PROB1CAP10 PO (13:59)
[2022-04-28 14:00] VITALS: BP 127/80
[2022-04-30 09:08] LABS: ASPERGILLUS FLAVUS ABY Negative (Neg:<1:1); ASPERGILLUS FUMIGATUS ABY Negative (Neg:<1:1); ASPERGILLUS NIGER ABY Negative (Neg:<1:1); BLASTOMYCES ANTIBODY LEVEL Negative (Neg:<1:1); CHLAMYDIA PNEUMONIAE IgM < 1:10 (< 1:10); CHLAMYDIA PSITTACI IgM < 1:10 (< 1:10); CHLAMYDIA TRACHOMATIS IgM < 1:10 (< 1:10); CRYPTOCOCCUS ANTIGEN SER Negative (Negative)
== END 2022-04-28 16:54 | disposition home or self-care (01) | DRG 139 ==
LOC: M ED 13:06 → M ED INP 19:58 → ENRESERV 04-22 15:14 → M ICU 04-22 16:28 → M MSPAV 04-24 17:54
PROVIDERS: ADMIT Internal Medicine; ATTEND Internal Medicine Pulmonary Disease
PROC: 5A09457 Assistance with Respiratory Ventilation, 24-96 Consecutive Hours, Continuous Positive Airway Pressure (ICD-10-PCS; principal; 2022-04-21)
PROC: 0BBG8ZX Excision of Left Upper Lung Lobe, Via Natural or Artificial Opening Endoscopic, Diagnostic (ICD-10-PCS; 2022-04-23)
PROC: B246ZZZ Ultrasonography of Right and Left Heart (ICD-10-PCS; 2022-04-25)
DX: J18.9 Pneumonia, unspecified organism (principal); J96.21 Acute and chronic respiratory failure with hypoxia; J44.0 Chronic obstructive pulmonary disease with (acute) lower respiratory infection; E11.42 Type 2 diabetes mellitus with diabetic polyneuropathy; R13.10 Dysphagia, unspecified; E87.5 Hyperkalemia; K75.81 Nonalcoholic steatohepatitis (NASH); C34.12 Malignant neoplasm of upper lobe, left bronchus or lung; J96.22 Acute and chronic respiratory failure with hypercapnia; E87.1 Hypo-osmolality and hyponatremia; M10.9 Gout, unspecified; M54.9 Dorsalgia, unspecified; M19.90 Unspecified osteoarthritis, unspecified site; I11.0 Hypertensive heart disease with heart failure; G25.81 Restless legs syndrome; Z66 Do not resuscitate; E78.5 Hyperlipidemia, unspecified; N40.0 Benign prostatic hyperplasia without lower urinary tract symptoms; Z90.49 Acquired absence of other specified parts of digestive tract; Z20.822 Contact with and (suspected) exposure to COVID-19; Z77.090 Contact with and (suspected) exposure to asbestos; Z79.82 Long term (current) use of aspirin; Z79.84 Long term (current) use of oral hypoglycemic drugs; Z79.52 Long term (current) use of systemic steroids; Z79.899 Other long term (current) drug therapy; Z87.891 Personal history of nicotine dependence; R74.01 Elevation of levels of liver transaminase levels; I50.32 Chronic diastolic (congestive) heart failure; E87.29 Other acidosis

== ENCOUNTER → 2022-04-21 | Outpatient (CLI) | payer OTHER ==
[2022-04-21 12:23] LABS: BLOOD UREA NITROGEN 45 MG/DL (9-23); CREATININE FOR GFR 1.01 MG/DL (0.70-1.30); GLOMERULAR FILTRATION RATE > 60.0 (>42)
== END ==
LOC: M LAB 10:00
PROVIDERS: ATTEND Internal Medicine Pulmonary Disease
DX: J84.9 Interstitial pulmonary disease, unspecified (principal)